=== PATIENT | male | born 1995 | race Caucasian/White ===

== ENCOUNTER 2016-10-25 14:59 | Emergency (ER) | payer MEDICAID ==
[2016-10-25 15:19] VITALS: BP 122/78; PULSE 79; RESP 16; TEMP 97.9; O2SAT 97
--- NOTE | 2016-10-25 15:33 | UCPHY ---
H & P Patient Type: New HPI/ROS: CHIEF COMPLAINT: Sore throat, nasal congestion. HISTORY OF PRESENT ILLNESS: The patient is a 21-year-old male who presents with sore throat and nasal congestion for 7 days. He does admit associated mild cough. He has been able to eat and drink fine denies fever, shortness of breath , abdominal pain, lethargy, or lymphadenopathy. No known exposure REVIEW OF SYSTEMS: Constitutional - no fevers or chills. Eyes - no discharge, or injection ENT - no earache, change in hearing, difficulty swallowing. Respiratory - No Shortness of breath, phlegm, wheezing or pleuritic chest pain. The cough is dry, mild Musculoskeletal - no joint or muscle pain. Integument - no rashes. Neurological - no headache, numbness, tingling, or paresthesias. No focal motor weakness. Immunological - no swelling or lymphadenopathy. Past Medical/Surgical History: Crohn's Disease. Social History: Nonsmoker. Smoking Status: Never smoked Physical Exam: General Appearance: Alert, no distress. Afebrile. Normal phonation. No respiratory distress. Eyes: Pupils equal and round no pallor or injection. No icterus ENT, Mouth: Mucous membranes moist. Pharynx erythematous with exudate. TM Clear. Neck: Mild adenopathy. Supple. No JVD. Trachea in midline. No laryngeal tenderness Respiratory: There are no retractions.Skin: Warm and dry, no rashes. Musculoskeletal: No joint swelling. Extremities: No edema. Psychiatric: Normal affect Constitutional: Initial Vital Signs Temperature (C) 36.6 C 10/25/16 15:17 Heart Rate 79 10/25/16 15:17 Respiratory Rate 16 10/25/16 15:17 Blood Pressure 122/78 H 10/25/16 15:17 O2 Sat (%) 97 10/25/16 15:17 O2 Delivery Mode Room Air Allergies/Adverse Reactions: No Known Allergies Allergy (Verified 10/25/16 15:19) Home Medications: Medication Instructions Recorded NK [No Known Home Meds] 10/25/16 Medical Decision Making ED Course/Re-evaluation: Strep swab obtained and is negative. Departure - Departure Clinical Impression: Pharyngitis Qualifiers: Pharyngitis/tonsillitis etiology: unspecified etiology Qualified Code(s): J02.9 - Acute pharyngitis, unspecified Condition: Good Instructions: Pharyngitis (ED) Additional Instructions: Drink plenty of fluids and be sure to get rest. Follow up with your primary care provider next week if symptoms are not improving. You have been provided the telephone number of the on-call outpatient doctor if you need a PCP. Return for any serious worsening of condition. Referrals: NONE *PRIMARY CARE P,. [Primary Care Provider] - As per Instructions Catarino Serra MD [Medical Doctor] - As per Instructions - PQRS PQRS Measurement: NA Report Scribed for: Riccardo Isbell Report Scribed by: Vikram Monk Date of Report: 10/25/16 Time of Report: 15:34 Physician Review and Approval Statement: 10/25/16 15:34 Portions of this note were transcribed by a medical billing associate. I personally performed a history, physical exam, medical decision making, and confirmed accuracy of information the transcribed note.
== END 2016-10-25 16:24 | disposition home or self-care (01) ==
LOC: CED 14:59
DX: J02.9 Acute pharyngitis, unspecified (principal)
CPT/HCPCS: 87880-PO; 99203-PO; G0463-PO

== ENCOUNTER 2018-05-01 18:08 | Emergency (ER) | payer MEDICAID ==
[2018-05-01 18:13] VITALS: BP 138/77
[2018-05-01] MEDS ORDERED: HYDROCODONE/APAP 5/325 TAB PO ONE (18:57)
--- NOTE | 2018-05-01 18:57 | EDPHY ---
H & P Stated Complaint: left sided upper oral pain starting 5 days ago, getting worse Time Seen by Provider: 05/01/18 18:32 HPI/ROS: Chief complaint: Left upper teeth pain History of present illness: This is a 22-year-old male, history of Crohn's disease, on Remicade, who presents to the emergency department with his parents for evaluation of left upper teeth pain. He reports the onset of symptoms over the last 5 days. Symptoms have been progressively worsening. He did see a dentist a few days ago. X-rays were taken and no obvious abscesses noted per patient. The dentist discussed starting him on antibiotics but they decided not to at that time. Instead, he was started on a chlorhexidine mouthwash. He has been using this, he felt like it helped a little at first. However, he reports symptoms are again worsening. He now feels swelling in the region. No report of fever, no report of difficulty talking, swallowing or breathing. No history of trauma. He is wondering if this is related to the fact that he has needed his wisdom teeth removed for some time but has not done it as of yet. Review of systems: A 10 point review of systems was obtained and other than described above was negative - Personal History Current Tetanus/Diphtheria Vaccine: Yes Current Tetanus Diphtheria and Acellular Pertussis (TDAP): Yes Tetanus Vaccine Date: within 10 years - Medical/Surgical History Hx Asthma: No Hx Chronic Respiratory Disease: No Hx Diabetes: No Hx Cardiac Disease: No Hx Renal Disease: No Hx Cirrhosis: No Hx Alcoholism: No Hx HIV/AIDS: No Hx Splenectomy or Spleen Trauma: No Other PMH: CROHNS - Social History Smoking Status: Never smoked - Physical Exam Exam: General: Alert, nontoxic Skin: No abnormal lesions to the face. ENT/Mouth: Tenderness to palpation in the left upper molar region. However no edema is noted. Rest the teeth are nontender. He is opening closing his mouth well. No hoarseness, no drooling, no trismus, no stridor. Neurological: Alert and oriented. No meningismus. Constitutional: Initial Vital Signs Temperature (C) 37.3 C 05/01/18 18:10 Heart Rate 102 H 05/01/18 18:10 Respiratory Rate 18 05/01/18 18:10 Blood Pressure 138/77 H 05/01/18 18:10 O2 Sat (%) 95 05/01/18 18:10 O2 Delivery Mode Room Air Allergies/Adverse Reactions: No Known Allergies Allergy (Verified 05/01/18 18:10) Home Medications: Medication Instructions Recorded Amoxicillin Trihydrate 500 mg PO TID 7 Days cap 05/01/18 [Amoxicillin] Hydrocodone/APAP 5/325 [[place] 1 tab PO Q4 #12 tab 05/01/18 5/325 (*)] Remicade Inj 100 mg (*) 05/01/18 Medical Decision Making ED Course/Re-evaluation: Patient seen under the supervision of my primary supervising physician Dr. Aleta Neumann. Patient presents with progressively worsening left upper teeth pain. He is nontoxic. I am concerned that he could have an infection. He is immunocompromised on Remicade for Crohn's disease. I will start him on amoxicillin. He is to continue chlorhexidine mouth washes. He is to follow up with a dentist for continued evaluation and care. Strict return precautions were given. The patient is family voiced understanding and agreement with plan. Differential Diagnosis: Included but not limited to dental zak, periodontal abscess, - Data Points Medications Given: Discontinued Medications Hydrocodone Bitart/Acetaminophen ([place] 5/325) 1 tab PO EDNOW ONE Stop: 05/01/18 18:58 Last Admin: 05/01/18 19:11 Dose: Not Given Hydrocodone Bitart/Acetaminophen ([place] 5/325mg Prepack#6) 1 btl TAKEHOME EDNOW ONE Stop: 05/01/18 19:13 Last Admin: 05/01/18 19:12 Dose: 1 btl Amoxicillin (Amoxicillin) 500 mg PO EDNOW ONE PRN Reason: Protocol Stop: 05/01/18 18:58 Last Admin: 05/01/18 19:11 Dose: 500 mg Departure - Departure Disposition: Home, Routine, Self-Care Clinical Impression: Periodontal abscess Condition: Good Instructions: Hydrocodone/Acetaminophen (By mouth), Dental Abscess (ED) Additional Instructions: Follow-up with an oral surgeon for further evaluation and care You have been prescribed [place] for pain. [place] contains Tylenol, do not take extra Tylenol/acetaminophen/a Pap with it. It is sedating. You may consider a stool softener while taking it. Take antibiotics as prescribed until finished. If symptoms worsen or new symptoms develop return to the emergency room for recheck Referrals: Tracy Singh MD [Primary Care Provider] - As per Instructions Jenaro Macedo MD [Medical Doctor] - As per Instructions Prescriptions: Amoxicillin Trihydrate [Amoxicillin] 500 mg PO TID 7 Days cap Hydrocodone/APAP 5/325 [[place] 5/325 (*)] 1 tab PO Q4 #12 tab
[2018-05-01] MEDS ORDERED: HYDROCOD/APAP 5/325 PREPACK#6 BTL TAKEHOME ONE ×2 (19:01→19:12)
== END 2018-05-01 19:10 | disposition home or self-care (01) ==
DX: K08.89 Other specified disorders of teeth and supporting structures (principal)

== ENCOUNTER 2018-08-10 02:09 | Emergency (ER) | payer MEDICAID ==
--- NOTE | 2018-08-10 02:18 | EDPHY ---
H & P Stated Complaint: Abdominal Pain Time Seen by Provider: 08/10/18 02:17 HPI/ROS: HPI CHIEF COMPLAINT: Abdominal pain HISTORY OF PRESENT ILLNESS: 23-year-old male, history of Crohn's disease, currently on prednisone 40 mg daily and has been so for the past 4 days. States he is having an active Crohn's flare. He is followed by gastroenterology Dr. Tuttle. On Remicade. Patient presents to the emergency room with abdominal pain. Patient mainly complains of upper abdominal pain. Epigastric. Right upper quadrant and left upper quadrant. Mildly tender on exam. No vomiting. Patient denies any lower abdominal pain specifically denies right lower quadrant , left lower quadrant or lower abdominal pain. No testicular pain. Patient states he had a normal bowel movement earlier in the day. No bloody stool. Denies fever Denies chest pain or shortness of breath. This abdominal pain in the epigastric region started earlier this evening. He took Tums it did not help. Past Medical History: History of Crohn's disease. Past Surgical History: Denies surgical history Social History: Denies drugs alcohol tobacco. Family History: Noncontributory ROS REVIEW OF SYSTEMS: 10 Systems were reviewed and negative with the exception of the elements mentioned in the history of present illness. Exam Constitutional triage nursing summary reviewed, vital signs reviewed, awake/ alert. Eyes normal conjunctivae and sclera, EOMI, PERRLA. HENT normal inspection, atraumatic, moist mucus membranes, no epistaxis, neck supple/ no meningismus, no raccoon eyes. Respiratory clear to auscultation bilaterally, normal breath sounds, no respiratory distress, no wheezing. Cardiovascular rate normal, regular rhythm, no murmur, no edema, distal pulses normal. Gastrointestinal mild tender palpation the upper abdomen right upper quadrant , epigastric, left upper quadrant, no rebound, no guarding, normal bowel sounds , no distension, no pulsatile mass. Genitourinary no CVA tenderness. Musculoskeletal no midline vertebral tenderness, full range of motion, no calf swelling, no tenderness of extremities, no meningismus, good pulses, neurovascularly intact. Skin pink, warm, & dry, no rash, skin atraumatic. Neurologic awake, alert and oriented x 3, AAOx3, moves all 4 extremities equally, motor intact, sensory intact, CN II-XII intact, normal cerebellar, normal vision, normal speech. Psychiatric normal mood/affect. Heme/Lymph/Immune no lymphadenopathy. Differential Diagnosis: Differential diagnosis includes but is not limited to and in no particular order: Bowel obstruction, appendicitis, gallbladder disease, diverticulitis, colitis, enteritis, perforated viscus, gastritis, GERD , esophagitis, urinary tract infection, pyelonephritis, kidney stones Medical Decision Making: Plan for this patient IV establishment IV fluid bolus, GI cocktail, basic blood work, low threshold for CT imaging given Crohn's disease. Re-evaluated after GI cocktail. Re-evaluation: 0317: Patient re-evaluated this time resting comfortably no acute distress. He received a GI cocktail and is much improved. Denies any current abdominal pain at this time. No chest pain or shortness of breath. Labs reviewed. Troponin negative. Vital signs stable. Feels better after GI cocktail The 0346 a.m. Patient is having ongoing abdominal pain mid abdomen tender palpation mid abdomen right upper quadrant left upper quadrant. Given he slightly improved the GI cocktail but now has recurrence of pain given he has current disease will proceed with CT scan abdomen pelvis with IV contrast. CT scan abdomen pelvis with IV contrast constipation present. No acute inflammatory process. No evidence of Crohn's flare on exam. Patient re-evaluated this time 6:07 a.m. Resting comfortably. Abdomen remained soft nontender patient is not vomiting. Patient is feeling much better and was requesting discharge home. 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 I do recommend he return emergency room if he has worsening abdominal pain, fever, vomiting. He is comfortable this plan. I did offer hospital observation today however he has declined this wants to go home and sleep. He states his abdomen does not hurt him. He understands return emergency room if develops worsening abdominal pain, fever , vomiting. Source: Patient, Family - Personal History Current Tetanus/Diphtheria Vaccine: Yes Current Tetanus Diphtheria and Acellular Pertussis (TDAP): Yes Tetanus Vaccine Date: within 10 years - Medical/Surgical History Hx Asthma: No Hx Chronic Respiratory Disease: No Hx Diabetes: No Hx Cardiac Disease: No Hx Renal Disease: No Hx Cirrhosis: No Hx Alcoholism: No Hx HIV/AIDS: No Hx Splenectomy or Spleen Trauma: No Other PMH: CROHNS - Social History Smoking Status: Never smoked Constitutional: Initial Vital Signs Temperature (C) 36.8 C 08/10/18 02:13 Heart Rate 69 08/10/18 02:13 Respiratory Rate 16 08/10/18 02:13 Blood Pressure 144/88 H 08/10/18 02:13 O2 Sat (%) 99 08/10/18 02:13 O2 Delivery Mode Room Air Allergies/Adverse Reactions: No Known Allergies Allergy (Verified 08/11/18 00:52) Home Medications: Medication Instructions Recorded Remicade Inj 100 mg (*) 05/01/18 predniSONE [Prednisone] 08/10/18 Medical Decision Making - Data Points Laboratory Results: Laboratory Results 08/10/18 02:35 08/10/18 02:35 Medications Given: Discontinued Medications Al Hydroxide/Mg Hydroxide (Maalox Susp) 30 ml PO ONCE ONE Stop: 08/10/18 02:28 Last Admin: 08/10/18 02:45 Dose: 30 ml Famotidine (Pepcid) 20 mg IVP EDNOW ONE Stop: 08/10/18 04:40 Last Admin: 08/10/18 04:45 Dose: 20 mg Hydromorphone HCl (Dilaudid) 0.5 mg IVP EDNOW ONE Stop: 08/10/18 02:23 Last Admin: 08/10/18 03:37 Dose: 0.5 mg Hyoscyamine Sulfate (Levsin, Hyomax-Sl) 0.25 mg PO ONCE ONE Stop: 08/10/18 02:28 Last Admin: 08/10/18 02:44 Dose: 0.25 mg Sodium Chloride (Ns) 1,000 mls @ 0 mls/hr IV EDNOW ONE; Wide Open PRN Reason: Protocol Stop: 08/10/18 02:23 Last Admin: 08/10/18 02:44 Dose: 1,000 mls Sodium Chloride (Ns) 1,000 mls @ 0 mls/hr IV ONCE ONE PRN Reason: Wide Open Stop: 08/10/18 03:44 Last Admin: 08/10/18 03:47 Dose: 1,000 mls Lidocaine (Lidocaine 2% Viscous) 15 ml PO ONCE ONE Stop: 08/10/18 02:28 Last Admin: 08/10/18 02:45 Dose: 15 ml Ondansetron HCl (Zofran) 4 mg IVP EDNOW ONE Stop: 08/10/18 02:23 Last Admin: 08/10/18 02:44 Dose: 4 mg Sucralfate (Carafate Suspension) 1 gm PO EDNOW ONE Stop: 08/10/18 07:31 Last Admin: 08/10/18 05:10 Dose: 1 gm Point of Care Test Results: Chemistry 08/10/18 02:41 POC Troponin I 0.00 ng/mL ng/mL (0.00-0.08) Departure - Departure Disposition: Home, Routine, Self-Care Clinical Impression: Abdominal pain Qualifiers: Abdominal location: generalized Qualified Code(s): R10.84 - Generalized abdominal pain Condition: Good Instructions: Acute Abdominal Pain (ED) Additional Instructions: 1. [place] diet over the next 24-48 hours 2. Please follow up with your scout executive 3. Return to the emergency room if worsening abdominal pain fever vomiting. Referrals: Tracy Singh MD [Primary Care Provider] - As per Instructions Justice Tuttle MD [[facility] [place] Primary Care Provider] - As per Instructions
[2018-08-10] MEDS ORDERED: NS 1,000 ML IV ONE ×2 (02:22→03:43)
[2018-08-10] MEDS ORDERED: ONDANSETRON 4 MG/2 ML VIAL IVP ONE (02:22)
[2018-08-10] MEDS ORDERED: HYDROmorphONE/DILAUDID 2 MG/ML INJ IVP ONE (02:22)
[2018-08-10] MEDS ORDERED: MAG HYDROX/AL HYDROX/SIMETH 30 ML UDCUP PO ONE (02:27)
[2018-08-10] MEDS ORDERED: LIDOCAINE 2% VISCOUS 15 ML UDCUP PO ONE (02:27)
[2018-08-10] MEDS ORDERED: HYOSCYAMINE SULFATE 0.125 MG TAB PO ONE (02:27)
[2018-08-10 02:49] LABS: PLATELET COUNT 293 10^3/uL (150-400)
[2018-08-10 02:57] LABS: INR 1.11 (0.83-1.16); PROTIME(PATIENT) 14.5 SEC (12.0-15.0)
[2018-08-10] MEDS ORDERED: IOPAMIDOL (ISOVUE-300) 100 ML BTL ONE (03:36)
[2018-08-10] MEDS ORDERED: FAMOTIDINE 20 MG/2 ML SDV IVP ONE (04:39)
[2018-08-10 05:11] VITALS: BP 137/81
[2018-08-10] MEDS ORDERED: SUCRALFATE 1 GM/10 ML UDCUP PO ONE (07:30)
== END 2018-08-10 06:15 | disposition home or self-care (01) ==
DX: R10.13 Epigastric pain (principal); K50.90 Crohn's disease, unspecified, without complications; E86.9 Volume depletion, unspecified; Z79.899 Other long term (current) drug therapy
CPT/HCPCS: 84484-ER; 96374; J1170; J2405; Q9967

== ENCOUNTER 2018-08-11 00:47 | Emergency (ER) | payer MEDICAID ==
[2018-08-11] MEDS ORDERED: HYOSCYAMINE SULFATE 0.125 MG TAB PO ONE (02:01)
[2018-08-11] MEDS ORDERED: FAMOTIDINE 20 MG TAB PO ONE (02:01)
[2018-08-11] MEDS ORDERED: LIDOCAINE 2% VISCOUS 15 ML UDCUP PO ONE (02:01)
[2018-08-11] MEDS ORDERED: MAG HYDROX/AL HYDROX/SIMETH 30 ML UDCUP PO ONE (02:01)
--- NOTE | 2018-08-11 02:09 | EDPHY ---
H & P Stated Complaint: heartburn Time Seen by Provider: 08/11/18 01:13 HPI/ROS: HPI The patient presents with epigastric abdominal pain which is recurrent, started tonight at about 8:00 p.m. And is described as a pressure like sensation which he feels throughout his epigastrium chest and back. His pain became worse when going to bed, lying flat, and also after eating. He was in the emergency department last night and he says the symptoms are identical. Here, he received a GI cocktail, famotidine, IV fluids, Dilaudid. He had labs drawn which were normal. He also had a CT scan of his abdomen which was normal. He was discharged at about 6:00 a.m. And slept for much of the day. When he awoke , he felt significantly better. He is currently being treated for a flare of his Crohn's disease and has taken 4 days of prednisone 40 mg. He contacted his pattern generator operator Dr. Tuttle who recommended decreasing prednisone to 10 mg. He is also supposed to start on a PPI, however has not had his 1st dose yet. REVIEW OF SYSTEMS 10 systems were reviewed and negative with the exception of the elements mentioned in the history of present illness. PMHx: History of Crohn's disease, no abdominal operations Soc Hx: Nonsmoker PHYSICAL General Appearance: Alert, no distress Eyes: Pupils equal and round no pallor or injection ENT, Mouth: Mucous membranes moist Respiratory: There are no retractions, lungs are clear to auscultation Cardiovascular: Regular rate and rhythm Gastrointestinal: Abdomen is soft and minimally tender in the epigastrium, no masses, bowel sounds normal Neurological: A&O, moves all extremities Skin: Warm and dry, no rashes Musculoskeletal: Neck is supple non tender Extremities: symmetrical, full range of motion Psychiatric: Patient is oriented X 3, there is no agitation Source: Patient Exam Limitations: No limitations - Personal History Current Tetanus/Diphtheria Vaccine: Yes Current Tetanus Diphtheria and Acellular Pertussis (TDAP): Yes Tetanus Vaccine Date: within 10 years - Medical/Surgical History Hx Asthma: No Hx Chronic Respiratory Disease: No Hx Diabetes: No Hx Cardiac Disease: No Hx Renal Disease: No Hx Cirrhosis: No Hx Alcoholism: No Hx HIV/AIDS: No Hx Splenectomy or Spleen Trauma: No Other PMH: CROHNS - Social History Smoking Status: Never smoked Constitutional: Initial Vital Signs Temperature (C) 37.0 C 08/11/18 00:50 Heart Rate 86 08/11/18 00:50 Respiratory Rate 16 08/11/18 00:50 Blood Pressure 137/79 H 08/11/18 00:50 O2 Sat (%) 96 08/11/18 00:50 O2 Delivery Mode Room Air Allergies/Adverse Reactions: No Known Allergies Allergy (Verified 08/11/18 00:52) Home Medications: Medication Instructions Recorded Remicade Inj 100 mg (*) 05/01/18 predniSONE [Prednisone] 08/10/18 Medical Decision Making Differential Diagnosis: 23-year-old male with known Crohn's disease followed by Dr. Tuttle, currently on day 4 of prednisone, also on Remicade, who presents again to the emergency department with epigastric abdominal pain which he describes as heartburn. He had recurrence of his symptoms tonight at about 8:00 p.m.. He is requesting the medication he received when he was here yesterday. I have ordered a GI cocktail for him. He does not report any dark or bloody stools. He had a cardiac workup and CT scan yesterday, ruling out most serious acute pathology. Given that the pain is identical tonight, I will not pursue repeat testing as I feel it will be low yield. I suspect he is suffering from GERD versus gastritis , perhaps exacerbated by his current steroid use. I am not concerned for GI bleed given no dark or bloody stools. - Data Points Medications Given: Discontinued Medications Al Hydroxide/Mg Hydroxide (Maalox Susp) 30 ml PO ONCE ONE Stop: 08/11/18 02:02 Last Admin: 08/11/18 02:14 Dose: 30 ml Famotidine (Pepcid) 20 mg PO EDNOW ONE Stop: 08/11/18 02:02 Last Admin: 08/11/18 02:13 Dose: 20 mg Hyoscyamine Sulfate (Levsin, Hyomax-Sl) 0.25 mg PO ONCE ONE Stop: 08/11/18 02:02 Last Admin: 08/11/18 02:14 Dose: 0.25 mg Lidocaine (Lidocaine 2% Viscous) 15 ml PO ONCE ONE Stop: 08/11/18 02:02 Last Admin: 08/11/18 02:14 Dose: 15 ml Departure - Departure Disposition: Home, Routine, Self-Care Clinical Impression: Epigastric abdominal pain Condition: Good Instructions: Gastritis (ED), Diet for Stomach Ulcers and Gastritis (ED) Additional Instructions: I recommend you start taking famotidine also called Pepcid 20 mg twice a day until your symptoms improved. You can take this with the Prilosec. Referrals: Tracy Singh MD [Primary Care Provider] - As per Instructions Justice Tuttle MD [[facility] [place] Primary Care Provider] - As per Instructions
[2018-08-11 04:07] VITALS: BP 131/90
== END 2018-08-11 04:00 | disposition home or self-care (01) ==
DX: R10.13 Epigastric pain (principal); K50.90 Crohn's disease, unspecified, without complications; Z79.52 Long term (current) use of systemic steroids